=== PATIENT | male | born 1965 | race Caucasian/White ===

== ENCOUNTER → 2021-08-13 | Outpatient (CLI) | payer OTHER ==
--- NOTE | 2021-08-14 11:47 | ECHOF ---
Referral Reason:I34.0 NONRHEUMATIC MITRAL (VALVE) INSUFFICIENCY,Z13.6 MEASUREMENTS -------- HEIGHT: 175.3 cm WEIGHT: 88.5 kg BP: 148/90 RVIDd: 2.8 cm (< 3.3) IVSd: 1.1 cm (0.6 - 1.1) LVIDd: 5.2 cm (3.9 - 5.3) LVPWd: 1.1 cm (0.6 - 1.1) IVSs: 1.6 cm LVIDs: 3.3 cm LVPWs: 1.4 cm LA Diam: 3.6 cm (2.7 - 3.8) LAESV Index (A-L): 28.01 ml/m Ao Diam: 3.7 cm (2.0 - 3.7) AV Cusp: 2.6 cm (1.5 - 2.6) MV E Cayden: 0.70 m/s MV DecT: 312 ms MV A [place]: 1.05 m/s MV E/A Ratio: 0.66 AR PHT: 780 ms RAP: 5.00 mmHg RVSP: 31.67 mmHg FINDINGS -------- Sinus rhythm. This was a technically good study. The left ventricular size is normal. There is mild concentric left ventricular hypertrophy. Overa ll left ventricular systolic function is normal with, an EF between 60 - 65 %. The right ventricle is normal in size. Normal LA size by volume 22+/-6 ml/m2. The right atrium is normal in size. Interatrial and interventricular septum intact. There is mild aortic regurgitation. The mitral valve is normal. Mild tricuspid regurgitation present. Right ventricular systolic pressure is normal at < 35 mmHg. Trace/mild (physiologic) pulmonic regurgitation. The aortic root size is normal. Normal inferior vena cava with normal inspiratory collapse consistent with estimated right atrial pre ssure of 5 mmHg. There is no pericardial effusion. CONCLUSIONS -------- 1. The left ventricular size is normal. 2. There is mild concentric left ventricular hypertrophy. 3. Overall left ventricular systolic function is normal with, an EF between 60 - 65 %. 4. There is mild aortic regurgitation. 5. Mild tricuspid regurgitation present. 6. Trace/mild (physiologic) pulmonic regurgitation. 7. There is no pericardial effusion. MANUFACTURING SHIFT SUPERVISOR: Lelia Aranda RDCS
== END | disposition home or self-care (01) ==
LOC: RADECHMAIN 14:28
PROVIDERS: ATTEND Internal Medicine
DX: I08.2 Rheumatic disorders of both aortic and tricuspid valves (principal)
CPT/HCPCS: 93306

== ENCOUNTER → 2021-09-07 | Outpatient (CLI) | payer OTHER ==
--- NOTE | 2021-09-08 05:24 | MR ---
EXAMINATION TYPE: MR brain and iac wo/w con DATE OF EXAM: 09/07/2021 COMPARISON: None HISTORY: Hearing loss right, tinnitus, acoustic neuroma CONTRAST: Standard multiplanar, multisequence MRI departmental protocol images were obtained without contrast a nd with 9 mL intravenous Gadavist gadolinium contrast. Multiplanar multi echo imaging of the brain without and with IV contrast. There is some metal artifact in the anterior brain convexities. There is no mass effect or midline sh ift. No sign of intracranial hemorrhage. Diffusion images show no evidence of acute infarct. There are a few scattered white matter high signal foci on the FLAIR and T2 images in the right parie matty lobe. Total number is approximately 5 and these measure up to 4 mm. The brainstem is intact. Daniel us callosum is intact. Sella turcica appears normal. There is no evidence of orbital mass. There is m etal artifact from the orbits. Cerebellum is intact. The internal auditory canals appear normal. No evidence of cerebellopontine ang le mass. The contrast images show no pathologic enhancement. There is normal enhancement of the venou s sinuses. IMPRESSION: No evidence of focal posterior fossa abnormality. There are a few white matter small high signal foci in the right parietal lobe that could be microvas cular ischemia. No acute abnormality.
== END | disposition home or self-care (01) ==
LOC: RADMRIMAIN 06:06
PROVIDERS: ATTEND Otolaryngology
DX: D33.3 Benign neoplasm of cranial nerves (principal); H91.91 Unspecified hearing loss, right ear; H93.19 Tinnitus, unspecified ear
CPT/HCPCS: 70553; A9585